=== PATIENT | male | born 1980 | race Caucasian/White ===

== ENCOUNTER 2017-01-01 14:39 | Emergency (ER) | payer SELFPAY ==
[~2017-01-01] VITALS: Ht 182.9 cm; Wt 70.0 kg
[2017-01-01] MEDS ORDERED: IOHEXOL 350 MG/ML 10 ML VIAL (for RAD DIAG) IVCONTRAST ONE (14:40)
[2017-01-01 14:42] VITALS: BP 136/60; PULSE 112; RESP 28; TEMP 99.4; O2SAT 99
--- NOTE | 2017-01-01 15:40 | PD ---
HPI Chief Complaint: Lump, Cyst, Hernia Time Seen by Provider: 15:40 Travel History International Travel<30 days: No Contact w/Intl Traveler<30days: No Traveled to known affect area: No History of Present Illness HPI 36-year-old male presents emergency Department with worsening right anterior groin pain and a lump. Patient states yesterday he was moving a generator with another coworker when his coworker slipped and he had to take all weight. He felt a sudden onset of pain in the right groin. Since that time he's had increasing pain and a swollen area noted last night. Denies fever , chills, or changes in urination. He is nauseous from the pain. He states the pain radiates into the right testicle. Patient has no known drug allergies. PFSH Social History Alcohol Use: Yes Tobacco Use: Yes Allergies-Medications (Allergen,Severity, Reaction): Coded Allergies: No Known Allergies (Unverified , 01/01/17) Reported Meds & Prescriptions Reported Meds & Active Scripts Active Lortab (Hydrocodone-Acetaminophen) 5-325 Mg Tab 1-2 Tab PO Q6H PRN Naproxen 500 Mg Tab 500 Mg PO BID Bactrim DS (Sulfamethoxazole-Trimethoprim) 800-160 Mg Tab 1 Tab PO BID Keflex (Cephalexin) 500 Mg Capsule 500 Mg PO Q8H 10 Days Reported Buprenorphine (Buprenorphine HCl) 8 Mg Subl 8 Mg PO BID Ativan (Lorazepam) 1 Mg Tab 1 Mg PO HS PRN Adderall (Amphetamine-Dextroamphetamine) 20 Mg Tab 20 Mg PO BID Avoid late evening doses. Space doses at least 4 to 6 hours if more than once/day dosing. Review of Systems Except as stated in HPI: all other systems reviewed are Neg General / Constitutional: No: Fever Eyes: No: Visual changes HENT: No: Headaches Cardiovascular: No: Chest Pain or Discomfort Respiratory: No: Shortness of Breath Gastrointestinal: Positive: Nausea, Abdominal Pain (see history present illness.), Loss of Appetite, No: Vomiting, Diarrhea Genitourinary: No: Dysuria Musculoskeletal: No: Pain Skin: No Rash Neurologic: No: Weakness Psychiatric: No: Depression Endocrine: No: Polydipsia Hematologic/Lymphatic: No: Easy Bruising Physical Exam Narrative GENERAL: Patient is noted to be in moderate to severe pain. SKIN: Warm and dry. Normal color. Normal turgor. HEAD: Atraumatic. Normocephalic. EYES: Pupils equal and round. No scleral icterus. No injection or drainage. ENT: No nasal bleeding or discharge. Mucous membranes pink and moist. NECK: Trachea midline. Supple nontender. CARDIOVASCULAR: Regular rate and rhythm. RESPIRATORY: No accessory muscle use. Clear to auscultation. Breath sounds equal bilaterally. GASTROINTESTINAL: Abdomen soft, patient has a very tender raised "lump" to the right anterior mid inguinal area seems to be more in the femoral distribution, consistent with femoral hernia. Abdomen is nondistended. Hepatic and splenic margins not palpable. There is no palpable hernia in the right scrotum. Right testicle is nontender. It is not swollen. MUSCULOSKELETAL: Extremities without clubbing, cyanosis, or edema. No obvious deformities. NEUROLOGICAL: Awake and alert. No obvious cranial nerve deficits. Motor grossly within normal limits. Five out of 5 muscle strength in the arms and legs. Normal speech. PSYCHIATRIC: Appropriate mood and affect; insight and judgment normal. Data Data Last Documented VS Vital Signs Date Time Temp Pulse Resp B/P (MAP) Pulse Ox O2 Delivery O2 Flow Rate FiO2 01/01/17 17:02 18 01/01/17 15:53 97 142/73 (96) 97 Room Air 01/01/17 14:42 99.4 Orders Orders Complete Blood Count With Diff (01/01/17 15:44) Comprehensive Metabolic Panel (01/01/17 15:44) Prothrombin Time / Inr (Pt) (01/01/17 15:44) Act Partial Throm Time (Ptt) (01/01/17 15:44) Ct Abd/Pel W Iv Contrast(Rout) (01/01/17 15:44) Iv Access Insert/Monitor (01/01/17 15:44) Ecg Monitoring (01/01/17 15:44) Oximetry (01/01/17 15:44) NPO (01/01/17 15:44) Morphine Inj (Morphine Inj) (01/01/17 15:45) Ondansetron Inj (Zofran Inj) (01/01/17 15:45) Sodium Chloride 0.9% Flush (Ns Flush) (01/01/17 15:45) Chest, Single Ap (01/01/17 15:44) Iohexol 350 Inj (Omnipaque 350 Inj) (01/01/17 14:40) Ed Poc Ultrasound (01/01/17 ) Cephalexin (Keflex) (01/01/17 19:00) Sulfamet-Trimeth Ds 800-160 Mg (Bactrim (01/01/17 19:00) Labs Laboratory Tests Test 01/01/17 16:10 White Blood Count 13.5 TH/MM3 Red Blood Count 4.68 MIL/MM3 Hemoglobin 14.3 GM/DL Hematocrit 41.6 % Mean Corpuscular Volume 88.9 FL Mean Corpuscular Hemoglobin 30.5 PG Mean Corpuscular Hemoglobin Concent 34.3 % Red Cell Distribution Width 14.6 % Platelet Count 334 TH/MM3 Mean Platelet Volume 6.8 FL Neutrophils (%) (Auto) 80.6 % Lymphocytes (%) (Auto) 9.4 % Monocytes (%) (Auto) 9.2 % Eosinophils (%) (Auto) 0.2 % Basophils (%) (Auto) 0.6 % Neutrophils # (Auto) 10.9 TH/MM3 Lymphocytes # (Auto) 1.3 TH/MM3 Monocytes # (Auto) 1.2 TH/MM3 Eosinophils # (Auto) 0.0 TH/MM3 Basophils # (Auto) 0.1 TH/MM3 CBC Comment DIFF FINAL Differential Comment Prothrombin Time 11.0 SEC Prothromb Time International Ratio 1.0 RATIO Activated Partial Thromboplast Time 32.4 SEC Blood Urea Nitrogen 14 MG/DL Creatinine 0.77 MG/DL Random Glucose 92 MG/DL Total Protein 9.0 GM/DL Albumin 4.1 GM/DL Calcium Level 9.5 MG/DL Alkaline Phosphatase 93 U/L Aspartate Amino Transf (AST/SGOT) 22 U/L Alanine Aminotransferase (ALT/SGPT) 15 U/L Total Bilirubin 1.0 MG/DL Sodium Level 134 MEQ/L Potassium Level 4.1 MEQ/L Chloride Level 99 MEQ/L Carbon Dioxide Level 28.7 MEQ/L Anion Gap 6 MEQ/L Estimat Glomerular Filtration Rate 115 ML/MIN [facility] Medical Decision Making Medical Screen Exam Complete: Yes Emergency Medical Condition: Yes Differential Diagnosis Severe right groin strain. Possible femoral hernia. Inguinal hernia. Narrative Course Patient is in pain but medically stable at time of exam. Patient is discussed and examined with Dr. Aquino. Labs ordered including CBC, CMP. CT the abdomen and pelvis ordered with IV contrast. IV access is obtained patient is given 4 mg IV morphine as well as 4 mg IV Zofran. CBC shows mild leukocytosis of 13.5. Neutrophils are elevated. No bands. CMP shows sodium 134 otherwise unremarkable. Coagulation studies are normal. Patient care was taken over by Dr. Aquino after the CT. CT showed possible lymphangitis versus hematoma. Dr. Aquino ultrasound area felt it was infectious. He recommended antibiotics which he prescribed. Please see his note for final disposition and plan. Scripts Hydrocodone-Acetaminophen (Lortab) 5-325 Mg Tab 1-2 TAB PO Q6H Y for PAIN, #12 TAB 0 Refills Prov: Anthony Aquino MD 01/01/17 Naproxen (Naproxen) 500 Mg Tab 500 MG PO BID, #20 TAB 0 Refills Prov: Anthony Aquino MD 01/01/17 Sulfamethoxazole-Trimethoprim (Bactrim DS) 800-160 Mg Tab 1 TAB PO BID for Infection, #20 TAB 0 Refills Prov: Anthony Aquino MD 01/01/17 Cephalexin (Keflex) 500 Mg Capsule 500 MG PO Q8H for Infection for 10 Days, CAP 0 Refills Prov: Anthony Aquino MD 01/01/17 Condition: Stable Mandeep Bradley Jan 01, 2017 15:40
[2017-01-01] MEDS ORDERED: SODIUM CHLORIDE 0.9% FLUSH 10 ML FLUSH IV FLUSH PRN (15:45)
[2017-01-01] MEDS ORDERED: ONDANSETRON HCL 4 MG/2 ML VIAL IVP ONE (15:45)
[2017-01-01] MEDS ORDERED: MORPHINE SULFATE 4 MG/ML INJ IV PUSH ONE (15:45)
[2017-01-01] MEDS ORDERED: ADDE20 PO (15:52)
[2017-01-01] MEDS ORDERED: BUPR8SUB PO (15:52)
[2017-01-01] MEDS ORDERED: LORA-474 PO (15:52)
[2017-01-01 15:53] VITALS: BP 142/73; PULSE 97; RESP 19; O2SAT 97
--- NOTE | 2017-01-01 16:41 | RADRPT ---
EXAM DATE/TIME: 01/01/2017 16:30 [facility] COMPARISON: No previous studies available for comparison. INDICATIONS : Short of breath. MEDICAL HISTORY : None. SURGICAL HISTORY : None. ENCOUNTER: Initial ACUITY: 1 day PAIN SCORE: 0/10 LOCATION: Bilateral chest FINDINGS: A single view of the chest demonstrates the lungs to be symmetrically aerated without evidence of mas s, infiltrate or effusion. The cardiomediastinal contours are unremarkable. Osseous structures are intact. No free intraperitoneal air is noted. CONCLUSION: No acute disease. No free intraperitoneal air. Kevan Harris MD on January 01, 2017 at 16:39 Board Certified Radiologist. This report was verified electronically.
[2017-01-01 16:45] LABS: AUTOMATED NEUTROPHIL # 10.9 TH/MM3 (1.8-7.7); BASOPHIL # 0.1 TH/MM3 (0-0.2); BASOPHIL % 0.6 % (0.0-2.0); EOSINOPHIL % 0.2 % (0.0-4.0); HEMATOCRIT 41.6 % (39.0-51.0); HEMO FLAGS DIFF FINAL; LYMPH % 9.4 % (9.0-44.0); LYMPHOCYTE # 1.3 TH/MM3 (1.0-4.8); MEAN CELL VOLUME 88.9 FL (80.0-100.0); MEAN CORPUSCULAR HEMOGLOBIN 30.5 PG (27.0-34.0); MEAN CORPUSCULAR HGB CONC 34.3 % (32.0-36.0); MONO % 9.2 % (0.0-8.0); NEUT % 80.6 % (16.0-70.0); PLATELET COUNT 334 TH/MM3 (150-450); RED BLOOD COUNT 4.68 MIL/MM3 (4.50-5.90); RED CELL DISTRIBUTION WIDTH 14.6 % (11.6-17.2); WHITE BLOOD COUNT 13.5 TH/MM3 (4.0-11.0)
[2017-01-01 16:59] LABS: ALT (GPT) 15 U/L (12-78); ANION GAP 6 MEQ/L (5-15); AST (GOT) 22 U/L (15-37); BICARBONATE 28.7 MEQ/L (21.0-32.0); BLOOD UREA NITROGEN 14 MG/DL (7-18); CHLORIDE 99 MEQ/L (98-107); GLOMERULAR FILTRATION RATE 115 ML/MIN (>89); POTASSIUM 4.1 MEQ/L (3.5-5.1); SODIUM (NA) 134 MEQ/L (136-145)
[2017-01-01 17:02] LABS: ALKALINE PHOSPHATASE 93 U/L (45-117)
[2017-01-01 17:07] LABS: APTT (PATIENT) 32.4 SEC (24.3-30.1)
--- NOTE | 2017-01-01 18:16 | RADRPT ---
EXAM DATE/TIME: 01/01/2017 17:45 [facility] COMPARISON: No previous studies available for comparison. INDICATIONS : Abdomen pain in groin area, right femoral hernia IV CONTRAST: 95 cc Omnipaque 350 (iohexol) IV ORAL CONTRAST: No oral contrast ingested. RADIATION DOSE: 9.96 CTDIvol (mGy) MEDICAL HISTORY : Asthma. SURGICAL HISTORY : Hernia repair. ENCOUNTER: Initial ACUITY: 1 day PAIN SCALE: 4/10 LOCATION: Right lower quadrant TECHNIQUE: Volumetric scanning of the abdomen and pelvis was performed. Using automated exposure control and ad justment of the mA and/or kV according to patient size, radiation dose was kept as low as reasonably achievable to obtain optimal diagnostic quality images. DICOM format image data is available electro nically for review and comparison. FINDINGS: There is reportedly a history of hernia repair. The are linear radiopaque densities in both inguinal regions. These do not have the typical appearance of surgical clips. Cannot exclude small needle frag ments. There is abnormal soft tissue around the right femoral artery measuring up to 4.3 cm in diamet er. Likely this represents a hematoma possibly adenopathy although I would consider the latter less l ikely. There is subcutaneous fat stranding possibly cellulitis or small hemorrhage. No left inguinal adenopathy. No acute bony abnormality. Lung bases are clear except minimal atelectasis. No acute findings in the liver, spleen, adrenals, ki dneys or pancreas. Mild constipation. No free air or free fluid. No bowel obstruction CONCLUSION: 1. Abnormal soft tissue in the right inguinal region especially around the right femoral artery. Ther e are linear radiopaque densities in both inguinal regions that could represent atypical surgical cli ps were even small needle fragments. Soft tissue measures up to 4.2 cm in diameter. It is unclear if this represents a hematoma or some form of phlegmonous inflammatory mass. There does appear to be emily e luminal narrowing of the right femoral artery in this area and cannot exclude femoral artery injury . 2. Mild constipation. Theodore Barillas MD on January 01, 2017 at 18:08 Board Certified Radiologist. This report was verified electronically.
[2017-01-01] MEDS ORDERED: CEPHALEXIN MONOHYDRATE 500 MG CAP PO ONE (19:00)
[2017-01-01] MEDS ORDERED: SULFAMETHOXAZOLE-TRIMETHOPRIM DS 800-160 MG TAB PO ONE (19:00)
[2017-01-01] MEDS ORDERED: CEPH-460 PO (19:04)
[2017-01-01] MEDS ORDERED: BACT800T5 PO (19:04)
[2017-01-01] MEDS ORDERED: NAPR500T PO (19:05)
[2017-01-01] MEDS ORDERED: HYDR-3533 PO (19:05)
--- NOTE | 2017-01-01 19:06 | PD ---
Data Data Last Documented VS Vital Signs Date Time Temp Pulse Resp B/P (MAP) Pulse Ox O2 Delivery O2 Flow Rate FiO2 01/01/17 17:02 18 01/01/17 15:53 97 142/73 (96) 97 Room Air 01/01/17 14:42 99.4 Orders Orders Complete Blood Count With Diff (01/01/17 15:44) Comprehensive Metabolic Panel (01/01/17 15:44) Prothrombin Time / Inr (Pt) (01/01/17 15:44) Act Partial Throm Time (Ptt) (01/01/17 15:44) Ct Abd/Pel W Iv Contrast(Rout) (01/01/17 15:44) Iv Access Insert/Monitor (01/01/17 15:44) Ecg Monitoring (01/01/17 15:44) Oximetry (01/01/17 15:44) NPO (01/01/17 15:44) Morphine Inj (Morphine Inj) (01/01/17 15:45) Ondansetron Inj (Zofran Inj) (01/01/17 15:45) Sodium Chloride 0.9% Flush (Ns Flush) (01/01/17 15:45) Chest, Single Ap (01/01/17 15:44) Iohexol 350 Inj (Omnipaque 350 Inj) (01/01/17 14:40) Ed Poc Ultrasound (01/01/17 ) Cephalexin (Keflex) (01/01/17 19:00) Sulfamet-Trimeth Ds 800-160 Mg (Bactrim (01/01/17 19:00) Labs Laboratory Tests Test 01/01/17 16:10 White Blood Count 13.5 TH/MM3 Red Blood Count 4.68 MIL/MM3 Hemoglobin 14.3 GM/DL Hematocrit 41.6 % Mean Corpuscular Volume 88.9 FL Mean Corpuscular Hemoglobin 30.5 PG Mean Corpuscular Hemoglobin Concent 34.3 % Red Cell Distribution Width 14.6 % Platelet Count 334 TH/MM3 Mean Platelet Volume 6.8 FL Neutrophils (%) (Auto) 80.6 % Lymphocytes (%) (Auto) 9.4 % Monocytes (%) (Auto) 9.2 % Eosinophils (%) (Auto) 0.2 % Basophils (%) (Auto) 0.6 % Neutrophils # (Auto) 10.9 TH/MM3 Lymphocytes # (Auto) 1.3 TH/MM3 Monocytes # (Auto) 1.2 TH/MM3 Eosinophils # (Auto) 0.0 TH/MM3 Basophils # (Auto) 0.1 TH/MM3 CBC Comment DIFF FINAL Differential Comment Prothrombin Time 11.0 SEC Prothromb Time International Ratio 1.0 RATIO Activated Partial Thromboplast Time 32.4 SEC Blood Urea Nitrogen 14 MG/DL Creatinine 0.77 MG/DL Random Glucose 92 MG/DL Total Protein 9.0 GM/DL Albumin 4.1 GM/DL Calcium Level 9.5 MG/DL Alkaline Phosphatase 93 U/L Aspartate Amino Transf (AST/SGOT) 22 U/L Alanine Aminotransferase (ALT/SGPT) 15 U/L Total Bilirubin 1.0 MG/DL Sodium Level 134 MEQ/L Potassium Level 4.1 MEQ/L Chloride Level 99 MEQ/L Carbon Dioxide Level 28.7 MEQ/L Anion Gap 6 MEQ/L Estimat Glomerular Filtration Rate 115 ML/MIN MDM Supervised Visit with KENNY: Yes Narrative Course The history, exam, and medical decision-making in the associated mid-level provider note were completed with my assistance. I reviewed and agree with the findings presented. I attest that I had a [id number] encounter with the patient on the same day, and personally performed and documented my assessment and findings in the medical record. *My assessment and Findings: 36-year-old male with tender indurated swelling in his groin. This seems to be a lymphadenitis. Initially there is some concern for an incarcerated hernia. Etiology is not exactly clear. A [id number] care ultrasound does not show any obvious fluid collections. I think this is likely lymphadenitis. We'll recommend antibiotic treatment, anti-inflammatory medications, and outpatient follow-up. Procedures Procedure Narrative Point of care ultrasound: Focus soft tissue ultrasound shows a tender nodule, unclear etiology, no clear fluctuant fluid collections. Diagnosis Primary Impression: Lymphadenitis Additional Instruction: Take medications as prescribed. Return emergent department for any worsening pain redness or swelling. Follow-up with her primary doctor in the next 2-4 days. Med/Other Pt SpecificInfo: Prescription(s) given Scripts Hydrocodone-Acetaminophen (Lortab) 5-325 Mg Tab 1-2 TAB PO Q6H Y for PAIN, #12 TAB 0 Refills Prov: Anthony Aquino MD 01/01/17 Naproxen (Naproxen) 500 Mg Tab 500 MG PO BID, #20 TAB 0 Refills Prov: Anthony Aquino MD 01/01/17 Sulfamethoxazole-Trimethoprim (Bactrim DS) 800-160 Mg Tab 1 TAB PO BID for Infection, #20 TAB 0 Refills Prov: Anthony Aquino MD 01/01/17 Cephalexin (Keflex) 500 Mg Capsule 500 MG PO Q8H for Infection for 10 Days, CAP 0 Refills Prov: Anthony Aquino MD 01/01/17 Disposition: 01 DISCHARGE HOME Condition: Stable Anthony Aquino MD Jan 01, 2017 19:06
[2017-01-01 19:31] VITALS: BP 129/70; PULSE 86; RESP 18; O2SAT 99
== END 2017-01-01 19:45 | disposition home or self-care (01) ==
LOC: NEPC 14:39
DX: I88.9 Nonspecific lymphadenitis, unspecified (principal); D72.829 Elevated white blood cell count, unspecified; Z72.0 Tobacco use
CPT/HCPCS: 71010; 74177; 80053; 85025; 85610; 85730; 96374; 96375; 99285; J2270; J2405; Q9967